=== PATIENT | female | born 1945 | race Two or more races ===

== ENCOUNTER 2020-01-21 04:47 | Emergency (ER) | payer OTHER ==
[~2020-01-21] VITALS: Ht 152.4 cm; Wt 54.4 kg
[2020-01-21] MEDS ORDERED: SYNTHROID75 MCG (05:15)
[2020-01-21] MEDS ORDERED: PHAZYME250 MG PO (07:01)
[2020-01-21] MEDS ORDERED: LEVSIN/SL0.125 MG SL (07:01)
== END 2020-01-21 07:16 | disposition home or self-care (01) ==
LOC: ER 04:47
DX: R10.84 Generalized abdominal pain (principal); R14.3 Flatulence; F41.8 Other specified anxiety disorders